=== PATIENT | female | born 1975 | race Two or more races ===

== ENCOUNTER 2023-10-22 10:49 | Emergency (ER) | payer MEDICAID ==
[~2023-10-22] VITALS: Ht 160 cm; Wt 138.0 kg
[2023-10-22 11:27] LABS: Basophils # (auto) 0 10 ^3/uL (0-0.2); Basophils % (auto) 0.5 % (0.0-2.0); Eosinophils # (auto) 0.1 10 ^3/uL (0-0.8); Eosinophils % (auto) 1.6 % (0.0-7.0); Hematocrit 46.3 % (36.0-46.0); Hemoglobin 15.3 g/dL (12.2-16.2); Lymphocytes % (auto) 22.8 % (10.0-50.0); Mean Corpuscular Hemoglobin 29.3 pg (28.0-32.0); Mean Corpuscular Hgb Conc. 33.1 g/dL (32.0-36.0); Mean Corpuscular Volume 88.5 fL (80.0-100.0); Monocytes # (auto) 0.5 10 ^3/uL (0-1.3); Monocytes % (auto) 6.4 % (0.0-12.0); Neutrophils # (auto) 5.9 10 ^3/uL (1.6-8.6); Neutrophils % (auto) 68.7 % (37.0-80.0); Nucleated Red Blood Cells % 0.1 %; Red Blood Cells 5.23 10^6/uL (4.0-5.20); Red Cell Distribution Width 13.7 % (11.8-14.3); White Blood Cell 8.6 10^3/uL (4.4-10.8)
[2023-10-22 16:15] LABS: Alanine Aminotransferase 28 U/L (7-40); Albumin 4.6 g/dL (3.2-4.8); Alkaline Phosphatase 80 U/L (46-116); Anion Gap 8 (5-15); Aspartate Aminotransferase 23 U/L (13-40); BUN/Creatinine Ratio 9.8 (10.0-20.0); Bilirubin, Total 0.4 mg/dL (0.2-1.0); Blood Urea Nitrogen 6 mg/dL (9-23); Calcium 9.9 mg/dL (8.5-10.1); Carbon Dioxide 33 mmol/L (20-30); Chloride 101 mmol/L (98-107); Glucose 106 mg/dL (74-106); Potassium 3.9 mmol/L (3.5-5.1); Sodium 142 mmol/L (136-145)
[2023-10-22 16:16] LABS: Total Protein 7.9 g/dL (5.7-8.2)
[2023-10-22] MEDS: KETOROLAC TROMETH 60MG/2ML VIAL IM ONE (18:36)
[2023-10-22 19:08] LABS: Urine Bacteria None Seen /hpf (None Seen)
[2023-10-22 19:32] LABS: Urine Blood Negative /uL (Negative); Urine Clarity Turbid (Clear); Urine Color Yellow (Yellow); Urine Mucus FEW (None Seen); Urine Protein, UAD 1+ (Negative); Urine Urobilinogen Normal (Negative); Urine WBC 20 /hpf (0 - 5); Urine pH 6.5 (5.0-9.0)
[2023-10-22 22:41] VITALS: BP 144/81; PULSE 82; RESP 20; TEMP 99.2; O2SAT 97
== END 2023-10-22 22:44 | disposition home or self-care (01) ==
LOC: ER 10:49
DX: R51.9 Headache, unspecified (principal); Z98.890 Other specified postprocedural states; Z88.8 Allergy status to other drugs, medicaments and biological substances
CPT/HCPCS: 36415; 70450; 71046; 80053; 81001; 83880; 84484; 85025; 93005; 96372; 99285; J1885

== ENCOUNTER 2023-11-26 07:06 | Inpatient (IN) | payer MEDICAID ==
[~2023-11-26] VITALS: Ht 154.9 cm; Wt 132.1 kg
[2023-11-26] VITALS (7 sets, daily range): BP systolic 112–158; BP diastolic 58–87; PULSE 75–92; RESP 14–24; TEMP 98.9; O2SAT 88–95
[2023-11-26] MEDS: ASPirin 325 MG TAB PO ONE (07:47)
[2023-11-26] MEDS: FUROSEMIDE 40 MG/4 ML VIAL IV ONE (08:18)
[2023-11-26 08:37] LABS: Basophils # (auto) 0 10 ^3/uL (0-0.2); Basophils % (auto) 0.4 % (0.0-2.0); Eosinophils # (auto) 0.1 10 ^3/uL (0-0.8); Eosinophils % (auto) 1.1 % (0.0-7.0); Hematocrit 48.4 % (36.0-46.0); Hemoglobin 15.6 g/dL (12.2-16.2); Lymphocytes # (auto) 1.5 10 ^3/uL (0.4-5.4); Lymphocytes % (auto) 19.6 % (10.0-50.0); Mean Corpuscular Hemoglobin 29.1 pg (28.0-32.0); Mean Corpuscular Hgb Conc. 32.2 g/dL (32.0-36.0); Mean Corpuscular Volume 90.5 fL (80.0-100.0); Monocytes # (auto) 0.6 10 ^3/uL (0-1.3); Monocytes % (auto) 8.1 % (0.0-12.0); Neutrophils # (auto) 5.3 10 ^3/uL (1.6-8.6); Neutrophils % (auto) 70.8 % (37.0-80.0); Nucleated Red Blood Cells % 0.2 %; Red Blood Cells 5.35 10^6/uL (4.0-5.20); Red Cell Distribution Width 15.2 % (11.8-14.3); White Blood Cell 7.5 10^3/uL (4.4-10.8)
[2023-11-26 08:49] LABS: Chloride 97 mmol/L (98-107); Potassium 4.3 mmol/L (3.5-5.1); Sodium 140 mmol/L (136-145)
[2023-11-26 08:50] LABS: Calcium 9.2 mg/dL (8.5-10.1)
[2023-11-26 08:55] LABS: BUN/Creatinine Ratio 19.6 (10.0-20.0); Blood Urea Nitrogen 9 mg/dL (9-23); Glucose 121 mg/dL (74-106)
[2023-11-26 08:58] LABS: Anion Gap 2.99999 (5-15)
[2023-11-26 09:01] LABS: Carbon Dioxide > 40 mmol/L (20-30)
[2023-11-26 09:37] LABS: Urine Bacteria None Seen /hpf (None Seen)
[2023-11-26] MEDS ORDERED: NITROGLYCERIN 0.4 MG SL TAB SL PRN (09:45)
[2023-11-26] MEDS ORDERED: MORPHINE SULFATE INJ 2 MG/ml SYRG IV PRN (09:45)
[2023-11-26 09:58] LABS: Base Excess 13.1 mmol/L (-2.0-2.0)
[2023-11-26 09:59] LABS: Urine Blood Negative /uL (Negative); Urine Clarity Clear (Clear); Urine Color Light-Yellow (Yellow); Urine Protein, UAD Negative (Negative); Urine Urobilinogen Normal (Negative); Urine WBC 1 /hpf (0 - 5); Urine pH 7.5 (5.0-9.0)
[2023-11-26] MEDS: PANTOPRAZOLE 40 MG/10 ML VIAL INJ IV ONE (10:00)
[2023-11-26] MEDS: ALBUTEROL SULF 2.5 MG/0.5ML(0.5%) NEB SOLN NEB ONE (10:22)
[2023-11-26] MEDS: IPRATROPIUM BROM 0.5 MG/2.5ML INH SOL NEB ONE (10:22)
[2023-11-26] MEDS: ALBUTEROL SULF 2.5 MG/0.5ML(0.5%) NEB SOLN ONE (10:23)
[2023-11-26] MEDS: FUROSEMIDE 40 MG/4 ML VIAL IV SCH (10:30)
[2023-11-26] MEDS: SACUBITRIL-VALSARTAN 24mg/26mg TAB PO SCH (10:45)
[2023-11-26] MEDS: EMPAGLIFLOZIN 10 MG TAB PO SCH (10:46)
[2023-11-26] MEDS: METOPROLOL TARTRATE 25 MG TAB PO SCH (10:47)
[2023-11-26] MEDS: methylPREDNISolone SOD SUCC 125 MG/2 ML VL IV ONE (10:48)
[2023-11-26] MEDS: PANTOPRAZOLE 40 MG/10 ML VIAL INJ IV SCH (10:48)
[2023-11-26] MEDS: ASPirin 81 mg TAB PO SCH (10:49)
[2023-11-26 11:20] LABS: Magnesium 1.9 mg/dL (1.6-2.6)
[2023-11-26 11:24] LABS: Amphetamine Screen, Urine Neg (NEGATIVE); Barbiturate Scree,Urine Neg (NEGATIVE); Benzodiazephine Screen, Urine Neg (NEGATIVE); Cannabinoid Screen, Urine Pos (NEGATIVE); Cocaine Screen, Urine Neg (NEGATIVE); Opiate Scree,Urine Neg (NEGATIVE); Phencyclidine Screen, Urine Neg (NEGATIVE)
[2023-11-26] MEDS: methylPREDNISolone SOD SUCC 125 MG/2 ML VL IV SCH (14:30)
[2023-11-26 15:47] LABS: Base Excess 14.7 mmol/L (-2.0-2.0)
[2023-11-26] MEDS: IPRATROPIUM BROM 0.5 MG/2.5ML INH SOL NEB PRN (20:06)
[2023-11-26] MEDS: ALBUTEROL SULF 2.5 MG/0.5ML(0.5%) NEB SOLN NEB PRN (20:07)
[2023-11-26] MEDS: ATORVASTATIN 20 MG TAB PO SCH (22:38)
[2023-11-27] VITALS (8 sets, daily range): BP systolic 96–122; BP diastolic 61–77; PULSE 74–84; RESP 14–18; O2SAT 90–96
[2023-11-27 05:56] LABS: Basophils # (auto) 0 10 ^3/uL (0-0.2); Basophils % (auto) 0.2 % (0.0-2.0); Eosinophils # (auto) 0 10 ^3/uL (0-0.8); Hematocrit 53.4 % (36.0-46.0); Hemoglobin 17.4 g/dL (12.2-16.2); Lymphocytes # (auto) 1.1 10 ^3/uL (0.4-5.4); Lymphocytes % (auto) 14.6 % (10.0-50.0); Mean Corpuscular Hemoglobin 29.3 pg (28.0-32.0); Mean Corpuscular Hgb Conc. 32.6 g/dL (32.0-36.0); Mean Corpuscular Volume 89.8 fL (80.0-100.0); Monocytes # (auto) 0.2 10 ^3/uL (0-1.3); Neutrophils % (auto) 82.2 % (37.0-80.0); Nucleated Red Blood Cells % 0.3 %; Red Blood Cells 5.94 10^6/uL (4.0-5.20); Red Cell Distribution Width 15.8 % (11.8-14.3); White Blood Cell 7.3 10^3/uL (4.4-10.8)
[2023-11-27 06:16] LABS: Alanine Aminotransferase 35 U/L (7-40); Albumin 4.4 g/dL (3.2-4.8); Alkaline Phosphatase 68 U/L (46-116); Aspartate Aminotransferase 12 U/L (13-40); BUN/Creatinine Ratio 19.7 (10.0-20.0); Bilirubin, Total 0.5 mg/dL (0.2-1.0); Blood Urea Nitrogen 13 mg/dL (9-23); Chloride 93 mmol/L (98-107); Glucose 144 mg/dL (74-106); Potassium 3.7 mmol/L (3.5-5.1); Sodium 142 mmol/L (136-145); Total Protein 8.1 g/dL (5.7-8.2)
[2023-11-27 06:57] LABS: Anion Gap 8.99999 (5-15)
[2023-11-27 06:59] LABS: Carbon Dioxide > 40 mmol/L (20-30)
[2023-11-27 07:10] LABS: Triglycerides 70 mg/dL (< 150)
[2023-11-27 07:11] LABS: LDL Cholesterol 118 mg/dL (< 100)
[2023-11-27 07:13] LABS: Cholesterol 168 mg/dL (< 200); HDL Cholesterol 42 mg/dL (40-59)
[2023-11-27] MEDS: methylPREDNISolone SOD SUCC 40 MG/ML VL IV SCH (10:44)
[2023-11-27] MEDS: LISINOPRIL 5 MG TAB PO SCH (20:00)
[2023-11-28] VITALS (15 sets, daily range): BP systolic 96–123; BP diastolic 53–77; PULSE 68–84; RESP 18–22; TEMP 97.4–99.1; O2SAT 91–97
[2023-11-28 08:21] LABS: Chloride 93 mmol/L (98-107); Potassium 3.5 mmol/L (3.5-5.1); Sodium 139 mmol/L (136-145)
[2023-11-28 08:22] LABS: Calcium 9.6 mg/dL (8.5-10.1)
[2023-11-28 08:24] LABS: Basophils # (auto) 0 10 ^3/uL (0-0.2); Basophils % (auto) 0.3 % (0.0-2.0); Eosinophils # (auto) 0 10 ^3/uL (0-0.8); Eosinophils % (auto) 0.1 % (0.0-7.0); Hemoglobin 17.9 g/dL (12.2-16.2); Lymphocytes # (auto) 2.7 10 ^3/uL (0.4-5.4); Lymphocytes % (auto) 21.9 % (10.0-50.0); Mean Corpuscular Hemoglobin 28.1 pg (28.0-32.0); Mean Corpuscular Hgb Conc. 31.7 g/dL (32.0-36.0); Mean Corpuscular Volume 88.5 fL (80.0-100.0); Neutrophils # (auto) 8.7 10 ^3/uL (1.6-8.6); Neutrophils % (auto) 69.7 % (37.0-80.0); Nucleated Red Blood Cells % 0.4 %; Red Blood Cells 6.39 10^6/uL (4.0-5.20); Red Cell Distribution Width 15.8 % (11.8-14.3); White Blood Cell 12.5 10^3/uL (4.4-10.8)
[2023-11-28 08:25] LABS: Hematocrit 56.6 % (36.0-46.0)
[2023-11-28 08:27] LABS: BUN/Creatinine Ratio 25.4 (10.0-20.0); Blood Urea Nitrogen 17 mg/dL (9-23); Glucose 127 mg/dL (74-106)
[2023-11-28 08:32] LABS: Anion Gap 5.99999 (5-15)
[2023-11-28 08:35] LABS: Carbon Dioxide > 40 mmol/L (20-30)
[2023-11-28 13:42] LABS: Base Excess 14.5 mmol/L (-2.0-2.0)
[2023-11-28] MEDS ORDERED: ONDANSETRON HCL 4 MG/2 ML VIAL IV PRN (23:30)
[2023-11-28] MEDS ORDERED: HYDROcodone-ACET 5/325MG TAB PO PRN (23:30)
[2023-11-29] VITALS (13 sets, daily range): BP systolic 96–115; BP diastolic 57–82; PULSE 71–87; RESP 17–23; TEMP 97.7–99; O2SAT 90–98
[2023-11-30] VITALS (7 sets, daily range): BP systolic 100–125; BP diastolic 68–77; PULSE 71–88; RESP 17–20; TEMP 97.5–99.5; O2SAT 93–97
[2023-11-30 07:15] LABS: Chloride 91 mmol/L (98-107); Potassium 3.2 mmol/L (3.5-5.1); Sodium 138 mmol/L (136-145)
[2023-11-30 07:17] LABS: Calcium 9.7 mg/dL (8.5-10.1)
[2023-11-30 07:21] LABS: Glucose 122 mg/dL (74-106)
[2023-11-30 07:22] LABS: BUN/Creatinine Ratio 23.4 (10.0-20.0); Blood Urea Nitrogen 15 mg/dL (9-23)
[2023-11-30 07:24] LABS: Anion Gap 6.99999 (5-15); Carbon Dioxide > 40 mmol/L (20-30)
[2023-11-30 07:44] LABS: Basophils # (auto) 0 10 ^3/uL (0-0.2); Eosinophils # (auto) 0.1 10 ^3/uL (0-0.8); Lymphocytes # (auto) 1.7 10 ^3/uL (0.4-5.4); Monocytes # (auto) 0.7 10 ^3/uL (0-1.3)
[2023-11-30 07:47] LABS: Basophils % (auto) 0.2 % (0.0-2.0); Eosinophils % (auto) 0.9 % (0.0-7.0); Hematocrit 54.7 % (36.0-46.0); Hemoglobin 18.2 g/dL (12.2-16.2); Lymphocytes % (auto) 24.5 % (10.0-50.0); Mean Corpuscular Hemoglobin 29.1 pg (28.0-32.0); Mean Corpuscular Hgb Conc. 33.2 g/dL (32.0-36.0); Mean Corpuscular Volume 87.6 fL (80.0-100.0); Monocytes % (auto) 9.5 % (0.0-12.0); Neutrophils # (auto) 4.4 10 ^3/uL (1.6-8.6); Neutrophils % (auto) 64.9 % (37.0-80.0); Nucleated Red Blood Cells % 0.7 %; Red Blood Cells 6.24 10^6/uL (4.0-5.20); Red Cell Distribution Width 15.3 % (11.8-14.3); White Blood Cell 6.8 10^3/uL (4.4-10.8)
[2023-11-30] MEDS: POTASSIUM CHL 20 Meq TABLET PO ONE (16:56)
== END 2023-11-30 15:56 | disposition home or self-care (01) | DRG 133 ==
LOC: ER 07:06 → TELE 09:38 → TELE-WESTW 11-27 23:48 → WEST WING 11-29 14:27
PROVIDERS: ADMIT Internal Medicine Pulmonary Disease; ATTEND Internal Medicine Pulmonary Disease
PROC: 5A09357 Assistance with Respiratory Ventilation, Less than 24 Consecutive Hours, Continuous Positive Airway Pressure (ICD-10-PCS; principal; 2023-11-26)
PROC: 5A09357 Assistance with Respiratory Ventilation, Less than 24 Consecutive Hours, Continuous Positive Airway Pressure (ICD-10-PCS; 2023-11-27)
PROC: 5A09357 Assistance with Respiratory Ventilation, Less than 24 Consecutive Hours, Continuous Positive Airway Pressure (ICD-10-PCS; 2023-11-28)
PROC: 5A09357 Assistance with Respiratory Ventilation, Less than 24 Consecutive Hours, Continuous Positive Airway Pressure (ICD-10-PCS; 2023-11-29)
DX: J96.01 Acute respiratory failure with hypoxia (principal); I50.31 Acute diastolic (congestive) heart failure; E87.4 Mixed disorder of acid-base balance; Z68.43 Body mass index [BMI] 50.0-59.9, adult; I11.0 Hypertensive heart disease with heart failure; E66.01 Morbid (severe) obesity due to excess calories; G47.33 Obstructive sleep apnea (adult) (pediatric); F17.210 Nicotine dependence, cigarettes, uncomplicated; J96.02 Acute respiratory failure with hypercapnia; Z88.6 Allergy status to analgesic agent
CPT/HCPCS: 36415; 36600; 71045; 80048; 80053; 80061; 80307; 81001; 82805; 83036; 83735; 83880; 84443; 84484; 85025; 85379; 93005; 93306; 94640; 94660; 96374; 96375; C9113; G0378